=== PATIENT | female | born 1990 | race Caucasian/White ===

== ENCOUNTER 2024-09-22 10:23 | Emergency (ER) | payer OTHER ==
--- NOTE | 2024-09-22 10:54 | ED ---
General Adult HPI - General Chief complaint: Chest Pain Stated complaint: Near Syncope Time Seen by Provider: 09/22/24 10:35 Source: patient, RN notes reviewed, old records reviewed Mode of arrival: EMS Limitations: no limitations - History of Present Illness Initial comments: This is a 34-year-old female who presents to the emergency department stating that over the last 5 days she has been having some tingling in her left arm today it was a little worse than normal. Patient states she was sitting in class today at [facility] and she started having some chest tightness but she states she gets this often and the tingling in her arm got worse and then she thought she was going to pass out. Patient denied any difficulty breathing to me. Patient states currently she is feeling much better and has no symptoms. Patient states she did start a new antiviral 5 days ago but nothing new today. Patient states she has been eating and drinking normally. Patient denies any fever chills or cough. Patient denies any palpitations. Patient d enies being short of breath. Patient states currently there is no symptoms at all. - Related Data Home Medications Medication Instructions Recorded Confirmed Acetaminophen [Tylenol] 650 mg PO Q4H PRN 09/22/24 09/22/24 Calcium Phos/D3/Magnesium/Zinc 1 tab PO TID PRN 09/22/24 09/22/24 [Bhfopfh-Dqq-Ijtt-Vitamin D3] Chlorpheniramine Maleate 4 mg PO Q4H PRN 09/22/24 09/22/24 [Chlor-Trimeton] Docusate [Colace] 100 mg PO BID PRN 09/22/24 09/22/24 Hyoscyamine Sulfate [Levsin] 0.125 mg PO QID PRN 09/22/24 09/22/24 Ibuprofen [Motrin Ib] 600 mg PO Q6H PRN 09/22/24 09/22/24 Loperamide HCl [Imodium A-D] 4 mg PO QID PRN 09/22/24 09/22/24 Mag Hydrox/Aluminum Hyd/Simeth 30 ml PO Q4H PRN 09/22/24 09/22/24 [Mylanta Maximum Strength Liq] Melatonin 10 mg PO HS PRN 09/22/24 09/22/24 Mirtazapine [Remeron] 15 mg PO HS 09/22/24 09/22/24 Multivitamins, Thera [Multivitamin 1 tab PO DAILY 09/22/24 09/22/24 (formulary)] Thiamine [Vitamin B-1] 100 mg PO DAILY 09/22/24 09/22/24 Venlafaxine HCl [Effexor XR] 150 mg PO DAILY 09/22/24 09/22/24 busPIRone HCl [Buspar] 10 mg PO TID 09/22/24 09/22/24 ondansetron HCL [Zofran] 8 mg PO Q6H PRN 09/22/24 09/22/24 Allergies Allergy/AdvReac Type Severity Reaction Status Date / Time bupropion [From Wellbutrin] Allergy Dyspnea Verified 09/22/24 10:50 Review of Systems ROS Statement: Those systems with pertinent positive or pertinent negative responses have been documented in the HPI. ROS Other: All systems not noted in ROS Statement are negative. Past Medical History Additional Past Medical History / Comment(s): hep c march 2024 History of Any Multi-Drug Resistant Organisms: None Reported Past Surgical History: Tubal Ligation Past Psychological History: ADD/ADHD, Anxiety, Depression, PTSD Smoking Status: Current every day smoker Past Alcohol Use History: None Reported Past Drug Use History: Cocaine, IV Drug Use, Marijuana, Methamphetamine General Exam - General Exam Comments Initial Comments: GENERAL: Patient is well-developed and well-nourished. Patient is nontoxic and well- hydrated and is in no acute distress. ENT: Neck is soft and supple. No significant lymphadenopathy is noted. Oropharynx is clear. Moist mucous membranes. Neck has full range of motion without eliciting any pain. EYES: The sclera were anicteric and conjunctiva were pink and moist. Extraocular movements were intact and pupils were equal round and reactive to light. Eyelids were unremarkable. PULMONARY: Unlabored respirations. Good breath sounds bilaterally. No audible rales rhonchi or wheezing was noted. CARDIOVASCULAR: There is a regular rate and rhythm without any murmurs gallops or rubs. ABDOMEN: Soft and nontender with normal bowel sounds. SKIN: Skin is clear with no lesions or rashes and otherwise unremarkable. NEUROLOGIC: Patient is alert and oriented x3. Cranial nerves II through XII are grossly intact. Motor and sensory are also intact. Normal speech, volume and content. Symmetrical smile. MUSCULOSKELETAL: Normal extremities with adequate strength and full range of motion. No lower extremity swelling or edema. No calf tenderness. LYMPHATICS: No significant lymphadenopathy is noted PSYCHIATRIC: Normal psychiatric evaluation. Limitations: no limitations Course Vital Signs 09/22/24 09/22/24 09/22/24 10:27 11:00 11:48 Temperature 97.8 F Pulse Rate 78 Pulse Rate [ 74 70 Efficiency Engineer ] Respiratory 14 Rate Blood Pressure 129/78 Blood Pressure [Right Arm Sitting] Blood Pressure [Right Arm Standing] Blood Pressure 116/78 [Right Arm Supine] O2 Sat by Pulse 98 Oximetry 09/22/24 09/22/24 09/22/24 11:50 11:52 12:00 Temperature 98.4 F Pulse Rate 70 Pulse Rate [ 68 88 Efficiency Engineer ] Respiratory 14 16 Rate Blood Pressure 132/88 Blood Pressure 134/99 [Right Arm Sitting] Blood Pressure 135/92 [Right Arm Standing] Blood Pressure [Right Arm Supine] O2 Sat by Pulse 98 98 Oximetry 09/22/24 13:00 Temperature 97.8 F Pulse Rate 70 Pulse Rate [ Efficiency Engineer ] Respiratory 12 Rate Blood Pressure 135/92 Blood Pressure [Right Arm Sitting] Blood Pressure [Right Arm Standing] Blood Pressure [Right Arm Supine] O2 Sat by Pulse 97 Oximetry Medical Decision Making - Medical Decision Making EKG is interpreted by myself but EKG shows a sinus rhythm at 64 bpm. Also 146 QRS 99 QT interval is 417 QTc is 426. Patient's EKG shows no ST segment ovation or depression Was pt. sent in by a medical professional or institution (, PA, UNDER GROUND [employer]ER, urgent care, hospital, or [place] health [place] facility...) When possible be specific @ -No Did you speak to anyone other than the patient for history (EMS, parent, family, police, friend...)? What history was obtained from this source @ -No Did you review nursing and triage notes (agree or disagree)? Why? @ -I reviewed and agree with nursing and triage notes Were old charts reviewed (outside hosp., previous admission, EMS record, old EKG, old radiological studies, urgent care reports/EKG's, [place] [facility] facility records)? Report findings @ -No old charts were reviewed Differential Diagnosis? @ -Differential Syncope: Valvular disease, hypertrophic cardiomyopathy, pulmonary embolism, tamponade, tachycardia, bradycardia, RI, hypovolemia, hemorrhage, dissection, anemia, intracranial hemorrhage, seizure, hypoglycemia, carbon monoxide poisoning, this is not meant to be an all-inclusive list. EKG interpreted by me (3pts min.). @ -As above X-rays interpreted by me (1pt min.). @ -Chest x-ray shows no acute abnormality CT interpreted by me (1pt min.). @ -CT of the brain shows no acute abnormality U/S interpreted by me (1pt. min.). @ -None done What testing was considered but not performed or refused? (CT, X-rays, U/S, labs)? Why? @ -None What meds were considered but not given or refused? Why? @ -None Did you discuss the management of the patient with other professionals (professionals i.e. , PA, UND[employer]ER, lab, RT, psych nurse, social service worker, threading machine operator, teacher, emergency communications officer, pillowcase maker)? Give summary @ -No Was smoking cessation discussed for >3mins.? @ -No Was critical care preformed (if so, how long)? @ -No Were there social determinants of health that impacted care today? How? (Homelessness, low income, unemployed, alcoholism, drug addiction, transportation, low edu. Level, literacy, decrease access to med. care, group home, rehab)? @ -No Was there de-escalation of care discussed even if they declined (Discuss DNR or withdrawal of care, Hospice)? DNR status @ -No What co-morbidities impacted this encounter? (DM, HTN, Smoking, COPD, CAD, Cancer, CVA, ARF, Chemo, Hep., AIDS, mental health diagnosis, sleep apnea, morbid obesity)? @ -None Was patient admitted / discharged? Hospital course, mention meds given and route, prescriptions, significant lab abnormalities, going to OR and other pertinent info. @ -Patient was symptom-free throughout her ED course. I went back into reevaluate her once all the lab work and radiological studies were done and she was without complaints. Undiagnosed new problem with uncertain prognosis? @ -No Drug Therapy requiring intensive monitoring for toxicity (Heparin, Nitro, Insulin, Cardizem)? @ -No Were any procedures done? @ -No Diagnosis/symptom? @ -Near syncope Acute, or Chronic, or Acute on Chronic? @ -Acute Uncomplicated (without systemic symptoms) or Complicated (systemic symptoms)? @ -Complicated Side effects of treatment? @ -No Exacerbation, Progression, or Severe Exacerbation? @ -No Poses a threat to life or bodily function? How? (Chest pain, USA, RI, pneumonia, PE, COPD, DKA, ARF, appy, cholecystitis, CVA, Diverticulitis, Homicidal, Suicidal, threat to staff... and all critical care pts) @ -No - Lab Data Result diagrams: 09/22/24 10:53 09/22/24 10:53 Lab Results 09/22/24 09/22/24 09/22/24 Range/Units 10:53 10:53 10:53 WBC 8.0 (3.8-10.6) k/uL RBC 5.16 (3.80-5.40) m/uL Hgb 14.2 (11.4-16.0) gm/dL Hct 43.9 (34.0-46.0) % MCV 85.0 (80.0-100.0) fL MCH 27.5 (25.0-35.0) pg MCHC 32.4 (31.0-37.0) g/dL RDW 14.3 (11.5-15.5) % Plt Count 300 (150-450) k/uL MPV 7.7 Neutrophils % 70 % Lymphocytes % 21 % Monocytes % 4 % Eosinophils % 3 % Basophils % 1 % Neutrophils # 5.6 (1.3-7.7) k/uL Lymphocytes # 1.7 (1.0-4.8) k/uL Monocytes # 0.3 (0-1.0) k/uL Eosinophils # 0.3 (0-0.7) k/uL Basophils # 0.1 (0-0.2) k/uL Sodium 138 (137-145) mmol/L Potassium 4.3 (3.5-5.1) mmol/L Chloride 104 (98-107) mmol/L Carbon Dioxide 26 (22-30) mmol/L Anion Gap 8 mmol/L BUN 14 (7-17) mg/dL Creatinine 0.65 (0.52-1.04) mg/dL Est GFR (CKD-EPI)AfAm >90 (>60 ml/min/1.73 sqM) Est GFR (CKD-EPI)NonAf >90 (>60 ml/min/1.73 sqM) Glucose 90 (74-99) mg/dL Calcium 9.4 (8.4-10.2) mg/dL Magnesium 1.7 (1.6-2.3) mg/dL Total Bilirubin 0.4 (0.2-1.3) mg/dL AST 33 (14-36) U/L ALT 17 (4-34) U/L Alkaline Phosphatase 68 (38-126) U/L Troponin I <0.012 (0.000-0.034) ng/mL Total Protein 7.7 (6.3-8.2) g/dL Albumin 4.7 (3.5-5.0) g/dL Disposition Clinical Impression: Near syncope Disposition: HOME SELF-CARE Condition: Good Instructions (If sedation given, give patient instructions): Near Syncope (ED) Is patient prescribed a controlled substance at d/c from ED?: No Referrals: Nonstaff,Physician [Primary Care Provider] - 1-2 days Time of Disposition: 13:38
[2024-09-22 11:24] LABS: Basophils # (A) 0.1 k/uL (0-0.2); Basophils % (A) 1 %; Eosinophils # (A) 0.3 k/uL (0-0.7); Eosinophils % (A) 3 %; HCT 43.9 % (34.0-46.0); HGB 14.2 gm/dL (11.4-16.0); Lymphocytes # (A) 1.7 k/uL (1.0-4.8); Lymphocytes % (A) 21 %; MCH 27.5 pg (25.0-35.0); MCHC 32.4 g/dL (31.0-37.0); Mean Platelet Volume 7.7; Monocytes # (A) 0.3 k/uL (0-1.0); Monocytes % (A) 4 %; Neutrophils # (A) 5.6 k/uL (1.3-7.7); Neutrophils % (A) 70 %; Platelet Count 300 k/uL (150-450); RBC 5.16 m/uL (3.80-5.40); RDW 14.3 % (11.5-15.5)
--- NOTE | 2024-09-22 11:35 | XR ---
EXAMINATION TYPE: XR chest 2V DATE OF EXAM: 09/22/2024 11:32 AM COMPARISON: None CLINICAL INDICATION: Female, 34 years old with history of Chest Pain; TECHNIQUE: XR chest 2V Frontal and lateral views of the chest. FINDINGS: Lungs/Pleura: There is no evidence of pleural effusion, focal consolidation, or pneumothorax. Pulmonary vascularity: Unremarkable. Heart/mediastinum: Cardiomediastinal silhouette is unremarkable. Musculoskeletal: No acute osseous pathology. IMPRESSION: No acute cardiopulmonary disease/process. [facility], , 09/22/2024 11:33 AM
--- NOTE | 2024-09-22 11:38 | CT ---
EXAMINATION TYPE: CT brain wo con CT DLP: 1068.4 mGycm, Automated exposure control for dose reduction was used. DATE OF EXAM: 09/22/2024 11:28 AM COMPARISON: None. CLINICAL INDICATION:Female, 34 years old with history of Numbness, Rt arm numbness and tingling, ligh theaded, hypertension TECHNIQUE: Brain: Multiple axial CT images of the brain were obtained without IV contrast. . Coronal and sagitta l reformats reviewed. FINDINGS: Brain: Extra-axial spaces: No abnormal extra-axial fluid collections. Ventricular system: Within normal limits Cerebral parenchyma: No acute intraparenchymal hemorrhage or mass effect. The sanders-white junction is well differentiated. Cerebellum: Unremarkable. Mass effect: No evidence of midline shift. Intracranial vasculature: unremarkable Soft tissues: Normal. Calvarium/osseous structures: No depressed skull fracture. Paranasal sinuses and mastoid air cells: Clear Visualized orbits: Orbital contents are intact. IMPRESSION: No acute intracranial process. [facility], , 09/22/2024 11:35 AM
[2024-09-22 11:56] LABS: ALT 17 U/L (4-34); AST 33 U/L (14-36); African American GFR (CKD) >90 (>60 ml/min/1.73 sqM); Albumin 4.7 g/dL (3.5-5.0); Alkaline Phosphatase 68 U/L (38-126); Anion Gap 8 mmol/L; Blood Urea Nitrogen 14 mg/dL (7-17); Calcium 9.4 mg/dL (8.4-10.2); Carbon Dioxide 26 mmol/L (22-30); Chloride 104 mmol/L (98-107); Glucose 90 mg/dL (74-99); Magnesium 1.7 mg/dL (1.6-2.3); Non-African American GFR(CKD) >90 (>60 ml/min/1.73 sqM); Potassium 4.3 mmol/L (3.5-5.1); Sodium 138 mmol/L (137-145); Total Bilirubin 0.4 mg/dL (0.2-1.3); Total Protein 7.7 g/dL (6.3-8.2)
[2024-09-22] MEDS: SODIUM CHLORIDE 0.9% 500 ML 500 ML IV STA (11:57)
[2024-09-22 14:17] VITALS: BP 139/86; PULSE 74; RESP 16; TEMP 98
== END 2024-09-22 14:17 | disposition home or self-care (01) ==
LOC: EC 10:23
DX: R55 Syncope and collapse (principal); F17.200 Nicotine dependence, unspecified, uncomplicated; Z88.8 Allergy status to other drugs, medicaments and biological substances
CPT/HCPCS: 36415; 70450; 71046; 80053; 83735; 84484; 85025; 93005; 96360; 99285